=== PATIENT | male | born 1945 | race Caucasian/White ===

== ENCOUNTER 2020-10-24 07:53 | Day surgery (SDC) | payer BC, SELFPAY ==
[2020-10-17 11:15] VITALS: BMI 26.2
--- NOTE | 2020-10-20 07:44 | MHC.SHP ---
Pre-Procedural Eval Section A The patient is an INPATIENT: No The History & Physical has been completed within 30 days and I have reviewed it.: Yes Section B Chief Complaint: Cataract Left Eye Allergies: Allergies Allergy/AdvReac Type Severity Reaction Status Date / Time Sulfa (Sulfonamide Allergy Intermediate hives Unverified 10/17/20 11:18 Antibiotics) (childhood [SULFA (SULFONAMIDE allergy) ANTIBIOTICS)] Plan Diagnosis/Plan: Unchanged I have reviewed the history and physical and performed a pertinent physical examination on my patient. No changes have occurred unless specified.
[2020-10-24 09:11] VITALS: BP 134/63; PULSE 78; RESP 16; TEMP 36.5; O2SAT 98
[2020-10-24] MEDS: Tetracaine HCl/PF 0.5% Oph Sol 4 ML DROPS 1 DROP EYE-LEFT (09:19)
[2020-10-24] MEDS: Tropicamide 1 % Ophth Sol 3 ML BTL 1 DROP EYE-LEFT ×3 (09:20→09:32)
[2020-10-24] MEDS: Phenylephrine HCL 2.5% Oph SoL 2 ML BOTTLE 1 DROP EYE-LEFT ×3 (09:24→09:36)
--- NOTE | 2020-10-24 09:55 | P.CONAN_ITS ---
[facility] Past Medical History Medical History Arthritis Asthma COVID-19 vaccine administered Elevated cholesterol HTN (hypertension) Surgical History Surgical History H/O colonoscopy Hx of cataract extraction Social History Social History Are you a primary home care consultant to a significant other at home: No Do you presently have visiting nurse or other home services: No Patient Tobacco Use Status: Never used Tobacco Use of substances other than those prescribed or required for medical reasons: No Have you been hit, kicked, punched, or otherwise hurt by someone within the past year? If so, by whom?: No Are you DNR?: No Advance Directives: No Advance Directives Information Provided: No Recently lost weight without trying: No Eating poorly because of decreased appetite: No Nutrition Risks: Surgical patient >75years Poor oral hygiene: No Meds Allergies Allergy/AdvReac Type Severity Reaction Status Date / Time Sulfa (Sulfonamide Allergy Intermediate hives Verified 10/24/20 09:07 Antibiotics) (childhood [SULFA (SULFONAMIDE allergy) ANTIBIOTICS)] Active Medications: Current Medications Generic Name Dose Route Start Last Admin Trade Name Freq PRN Reason Stop Dose Admin Lactated Ringer's 500 mls @ 50 mls/hr 10/24/20 10:00 Lr IV 10/24/20 19:59 .Q10H SIM Povidone Iodine 1 appl 10/24/20 09:05 Povidone Iodine 5 % Ophth Soln 30 Ml Bottle EYE-LEFT PREOP PRN Pre-Op Surgical Implant Prophy Home Medications Medication Instructions Recorded Confirmed Last Taken Type fexofenadine [Juana] 180 mg PO BEDTIME 10/17/20 10/17/20 Unknown History hydrochlorothiazide 1 tab PO DAILY 10/17/20 10/17/20 Unknown History lovastatin 1 tab PO BEDTIME 10/17/20 10/17/20 Unknown History montelukast 1 tab PO BEDTIME 10/17/20 10/17/20 Unknown History Exam Exam Date and Time: October 24, 2020 0955 Height,Weight and Vital Signs: Height 5 ft 8.5 in Weight 79.379 kg Last Vital Signs Temp 97.7 F 10/24/20 09:11 Pulse 78 10/24/20 09:11 Resp 16 10/24/20 09:11 BP 134/63 10/24/20 09:11 Pulse Ox 98 10/24/20 09:11 Airway Mallampati Class: II TM Dist: >3cm Neck ROM: Full Heart: rrr Lungs: cta Assessment and Plan Assessment Anesthesia Assessment: Anesthesia Plan Discussed and Chart Reviewed Final Anesthetic Review NPO: Yes ASA Class: II Final Preanesthetic Review: No Changes in Pt Med Stat and Consent Obtained/Reviewed Patient Risk: Intermediate Procedure Risk: Intermediate Anesthetic Plan Anesthetic Plan: MAC: Disposition: Standard PACU
[2020-10-24] MEDS: Lactated Ringers 500 ML 50 ML IV (10:00)
--- NOTE | 2020-10-24 11:16 | HO.PNOPHT ---
Ophthalmology Procedure Procedure Date of Service: 10/24/20 Ophthalmology Viscoelastic: Healon Duet Dual Pack Pro Ophthalmology Lenses: TECNIS [id number] (14.5) Procedure Notes: PREOPERATIVE DIAGNOSIS: Decreased visual acuity left eye secondary to cataract POSTOPERATIVE DIAGNOSIS: Same PROCEDURE: Left cataract extraction with intraocular lens insertion SURGEON: Julien Maldonado M.D. ANESTHESIA: Topical/MAC ESTIMATED BLOOD LOSS: None COMPLICATIONS: None After obtaining informed consent, the patient was brought to the operation room suite and placed in the supine position. After adequate sedation per anesthesia, topical drops of Tetracaine were given to the left eye. The eye was then prepped and draped in the usual sterile fashion. The operating room microscope was then positioned over the operative eye and a lid speculum placed. A paracentesis was created. Viscoelastic was then instilled into the anterior chamber. A three plane incision was then created temporally, utilizing a 2.85 mm keratome. Capsulotomy forceps were then utilized to create a circular tear capsulotomy. Hydrodissection and hydrodelineation were carried out until adequate mobilization of the nucleus occurred. Phacoemulsification was then utilized to remove the dense central nucleus followed by removal of the cortical material utilizing the automated aspiration irrigation unit. Viscoat elastic was instilled into the posterior capsular bag followed by placement of a posterior chamber intraocular lens without difficulty. The residual Viscoat elastic was then removed utilizing the automated IA machine. The wound was check and found to be watertight. The patient tolerated the procedure well and the lid speculum was removed. Intracameral injection of Vigamox 0.1 mL followed by a subtenon injection of Kenalog-40 0.2 mL were administered. The patient will be seen in the a.m.
[2020-10-24 11:44] VITALS: BP 117/51; PULSE 68; RESP 14; TEMP 36.5; O2SAT 99
== END 2020-10-24 11:53 | disposition home or self-care (01) ==
PROVIDERS: Visit Provider Ophthalmology
PROC: (CPT 66985; principal; 2020-10-24 10:20)
DX: H25.12 Age-related nuclear cataract, left eye (principal); H54.7 Unspecified visual loss; Z83.511 Family history of glaucoma; I10 Essential (primary) hypertension; J45.909 Unspecified asthma, uncomplicated; Z79.899 Other long term (current) drug therapy; Z88.2 Allergy status to sulfonamides
CPT/HCPCS: 66984; J2250; J3010; J3300; V2632